=== PATIENT | male | born 1995 | race African-American/Black ===

== ENCOUNTER 2021-03-04 03:01 | Emergency (ER) | payer MEDICAID, SELFPAY ==
[2021-03-04] MEDS ORDERED: Ketorolac Tromethamine 30 MG/ML VIAL ONE (03:29)
[2021-03-04 08:36] LABS: SARS-CoV-2 PCR by NAA Not Detected (NotDetected)
== END 2021-03-04 03:48 | disposition home or self-care (01) ==
LOC: ERS 03:01
DX: J06.9 Acute upper respiratory infection, unspecified (principal); J45.909 Unspecified asthma, uncomplicated; Z20.822 Contact with and (suspected) exposure to COVID-19
CPT/HCPCS: 87635; 96372; 99283; J1885; U0003; U0005

== ENCOUNTER 2021-03-05 08:52 | Emergency (ER) | payer SELFPAY ==
[2021-03-05] MEDS ORDERED: Albuterol 200 PUFF (6.7GM INHALER) ONE (10:01)
== END 2021-03-05 11:23 | disposition home or self-care (01) ==
LOC: ERS 08:52
DX: J45.901 Unspecified asthma with (acute) exacerbation (principal); Z79.899 Other long term (current) drug therapy
CPT/HCPCS: 71045; 93005